=== PATIENT | male | born 1980 | race Caucasian/White ===

== ENCOUNTER 2018-12-21 16:00 | Emergency (ER) | payer SELFPAY ==
[2018-12-21 16:10] VITALS: RESP 18; TEMP 97.9; O2SAT 100
[2018-12-21] MEDS ORDERED: Multivitamin (MVI) 10 ML, Thiamine 100 MG, Folic Acid 1 MG in Dextrose 5%/0.45% NS 1,00... IV ONE (16:17)
[2018-12-21] MEDS ORDERED: Sodium Chloride 0.9% 1,000 ML IV STA (16:17)
--- NOTE | 2018-12-21 16:40 | ED PDOC ---
HPI: Headache Time Seen by Provider: 12/21/18 16:11 Chief Complaint (Nursing): Headache Chief Complaint (Provider): Headache History Per: Patient History/Exam Limitations: no limitations Onset/Duration Of Symptoms: Days (x2) Current Symptoms Are (Timing): Still Present Additional Complaint(s): 38 y/o male with a PHx of Pancreatitis presents to the ED for evaluation of a headache, onset two days ago. Patient states headache is associated with intermittent nose bleeds lasting at about two minutes. Patient reports pain resolves with pressures. Patient notes of experiencing a headache for the past few months but has been constant for the last two days. Patient reports of taking Advil with minimal relief. Patient denies any bleeding elsewhere. Of note, patient was seen at [facility] in October for similar symptoms and at his last visit he was diagnosed with pancreatitis and admitted but signed out AMA. Patient states he never followed up. Patient admits to drinking alcohol today. PMD: no provider Past Medical History Reviewed: Historical Data, Nursing Documentation, Vital Signs Vital Signs: Last Vital Signs Temp 97.9 F 12/21/18 16:08 Pulse 81 12/21/18 16:08 Resp 18 12/21/18 16:08 BP 109/72 12/21/18 16:08 Pulse Ox 100 12/21/18 16:08 - Medical History PMH: Migraine, Pancreatitis - Surgical History Surgical History: No Surg Hx - Family History Family History: States: No Known Family Hx - Social History Current smoker - smoking cessation education provided: Yes Alcohol: > 2 Drinks/Day - Immunization History Hx Tetanus Toxoid Vaccination: No Hx Influenza Vaccination: Yes Hx Pneumococcal Vaccination: No - Home Medications Home Medications: Ambulatory Orders Medication Instructions Recorded No Known Home Med 11/08/18 - Allergies Allergies/Adverse Reactions: Allergies Allergy/AdvReac Type Severity Reaction Status Date / Time No Known Allergies Allergy Verified 11/08/18 21:19 Review of Systems ROS Statement: Except As Marked, All Systems Reviewed And Found Negative (as per HPI) ENT: Positive for: Other (nose bleed) Neurological: Positive for: Headache Physical Exam - Reviewed Nursing Documentation Reviewed: Yes Vital Signs Reviewed: Yes - Physical Exam Appears: Positive for: No Acute Distress Head Exam: Positive for: ATRAUMATIC, NORMOCEPHALIC Skin: Positive for: Warm, Dry Eye Exam: Positive for: EOMI, PERRL ENT: Positive for: Other (tachy mucous membrane. Dry blood noted in the bilateral nares with no active bleeding) Neck: Positive for: Painless ROM, Supple Cardiovascular/Chest: Positive for: Regular Rate, Rhythm. Negative for: Murmur Respiratory: Positive for: Normal Breath Sounds. Negative for: Respiratory Distress Gastrointestinal/Abdominal: Positive for: Soft. Negative for: Tenderness, Mass, Guarding, Rebound Back: Positive for: Normal Inspection. Negative for: Muscle Spasm Extremity: Positive for: Normal ROM. Negative for: Deformity Lymphatic: Negative for: Adenopathy Neurologic/Psych: Positive for: Alert, Oriented (x3), Gait (steady). Negative for: Motor/Sensory Deficits - Laboratory Results Result Diagrams: 12/21/18 16:25 12/21/18 16:25 - ECG O2 Sat by Pulse Oximetry: 100 (RA) Pulse Ox Interpretation: Normal Medical Decision Making Medical Decision Making: Time: 1614 Impression: Headache Differentials include but not limited to dehydration, sinusitis, alcohol abuse, subacute intracranial hemorrhage, pancreatitis Plan: -- Type and Screen -- CT Abd/Pelvis IV Contrast only -- CT Head w/o Contrast -- Alcohol Serum -- CMP -- Lact Acid, Plasma -- LDH -- Lipase -- Magnesium -- Phosphorus -- CBC with Differentials -- PTT -- Prthrombin Time -- Dextrose 1000 ml Multivitamin 10 ml Vitamin B 100 mg Folic Acid 1 mg IV 125 mls/hr -- Sodium Chloride IV 1000 mls/hr -- IV Insertion Time: 1850 CT BRAIN FINDINGS: BRAIN No acute intraparenchymal hemorrhage. No mass lesion. No CT evidence for acute territorial infarct. No midline shift or extra-axial collections. VENTRICLES: No hydrocephalus. ORBITS: The orbits are unremarkable. SINUSES AND MASTOIDS: The paranasal sinuses and mastoid air cells are clear. BONES: No fracture. SOFT TISSUES: Unremarkable. IMPRESSION: No acute intracranial abnormality. Electronically signed on Dec 21, 2018 6:50:31 PM EST by: Jason Zaman M.D., Certified by [employer], Diagnostic Radiology Time: 1914 CT ABD/PELVIS FINDINGS: LUNG BASES: The lung bases appear clear. No pleural effusions are seen. LIVER: There is fatty infiltration of the liver. GALLBLADDER AND BILE DUCTS: Small amount of fluid about the gallbladder suggested. PANCREAS: Heterogeneous appearance to the head of the pancreas and uncinate process likely related to localized pancreatitis. SPLEEN: Unremarkable. ADRENAL GLANDS: Unremarkable. KIDNEYS, URETERS, AND BLADDER: The kidneys appear within normal limits. There is no hydronephrosis or hydroureter. No urinary calculi are seen. Prostatic calcifications present. STOMACH AND BOWEL: Unremarkable appearance of the stomach and bowel. No evidence of bowel obstruction. No evidence suggesting enteritis or colitis. APPENDIX: No evidence of acute appendicitis on CT examination. PERITONEUM: No free fluid. No free air. LYMPH NODES: No lymphadenopathy is evident. REPRODUCTIVE: Unremarkable as visualized. VASCULATURE: No evidence of abdominal aortic aneurysm. BONES: No aggressive appearing osseous lesion. No acute osseous pathology evident. IMPRESSION: Fatty infiltration of the liver. Small amount of fluid about the gallbladder. Heterogeneous appearance to the head and uncinate process of the pancreas suggesting localized pancreatitis. Prostatic calcifications noted. Clinical correlation advised. Electronically signed on Dec 21, 2018 7:15:01 PM EST by: Jason Zaman M.D., Certified by [employer], Diagnostic Radiology On reeval pt continues to appear comfortable. Requesting to eat. Advised patient that he needs to stop drinking especially with pancreatitis. Advised liquid diet and followup at [facility] next week for reevaluation. Addiction resources given. Scribe Attestation: Documented by Cee Rod, acting as a scribe for Briseyda Terrell MD. Provider Scribe Attestation: All medical record entries made by the Scribe were at my direction and personally dictated by me. I have reviewed the chart and agree that the record accurately reflects my personal performance of the history, physical exam, medical decision making, and the department course for this patient. I have also personally directed, reviewed, and agree with the discharge instructions and disposition. Disposition - Clinical Impression Clinical Impression: Pancreatitis, Alcohol abuse, Nosebleed Counseled Patient/Family Regarding: Studies Performed, Diagnosis, Need For Followup - Disposition Referrals: Alcoholics Anonymous [Outside] [facility] [Outside] Disposition: Routine/Home Disposition Time: 19:29 Condition: IMPROVED Additional Instructions: YOU NEED TO STOP DRINKING. YOU HAVE PANCREATITIS AND THIS WILL WORSEN IF YOU CONTINUE TO DRINK AND YOU CAN . PLEASE MAINTAIN LIQUID DIET (NO ALCOHOL) FOR THE NEXT 48 HOURS AND ADVANCE TO BLAND DIET SLOWLY. FOLLOWUP WITH CLINIC NEXT WEEK. Instructions: Pancreatitis (DC), Nosebleeds (DC), Alcohol Abuse and Alcoholism (DC)
[2018-12-21 16:51] LABS: BASO % 1.2 % (0.0-2.0); EOS # 0.1 K/uL (0.0-0.7); EOS % 1.4 % (0.0-4.0); HEMOGLOBIN 12.1 g/dL (12.0-18.0); LYMPH # 2.1 K/uL (1.0-4.3); LYMPH % 53.5 % (20.0-40.0); MEAN CELL VOLUME 101.8 fl (80.0-94.0); MEAN CORPUSCULAR HEMOGLOBIN 34.1 pg (27.0-31.0); MEAN CORPUSCULAR HGB CONC 33.4 g/dL (33.0-37.0); MEAN PLATELET VOLUME 10.1 fl (7.2-11.7); MONO # 0.3 K/uL (0.0-0.8); MONO % 7.1 % (0.0-10.0); NEUT # 1.5 K/uL (1.8-7.0); NEUT % 36.8 % (50.0-75.0); NRBC % 0.2 % (0.0-0.0); RBC 3.54 Mil/uL (4.40-5.90); RED CELL DISTRIBUTION WIDTH 13.7 % (11.5-14.5)
[2018-12-21 16:55] LABS: ALB/GLOB RATIO 0.7 (1.0-2.1); ALBUMIN 3.2 g/dL (3.5-5.0); ALT/SGPT 73 U/L (21-72); AST/SGOT 214 U/L (17-59); BLOOD UREA NITROGEN 12 mg/dl (9-20); CALCIUM 7.9 mg/dL (8.4-10.2); GFR NON-AFRICAN AMERICAN > 60
[2018-12-21] MEDS ORDERED: Potassium Chloride 20 mEq ER Tab PO STA (16:57)
[2018-12-21 17:04] LABS: LIPASE 622 U/L (23-300)
[2018-12-21] MEDS ORDERED: Potassium Chloride 20 mEq ER Tab PO ONE (17:09)
[2018-12-21] MEDS ORDERED: Iohexol 300 100 ML IJ ONE (17:45)
[2018-12-21] MEDS ORDERED: Sodium Chloride 0.9% 50 ML IV ONE (17:45)
[2018-12-21 19:50] VITALS: BP 119/84; PULSE 84
[2018-12-21 19:53] LABS: INR 1.3; PROTHROMBIN TIME 14.3 Seconds (9.8-13.1)
--- NOTE | 2018-12-22 09:19 | CT ---
Date of service: 12/21/2018 PROCEDURE: CT Abdomen and Pelvis with contrast HISTORY: pancreatitis etoh COMPARISON: None. TECHNIQUE: Contrast dose: 95 mL Omnipaque 300 Radiation dose: Total exam DLP = 235.76 mGy-cm. This CT exam was performed using one or more of the following dose reduction techniques: Automated exposure control, adjustment of the mA and/or kV according to patient size, and/or use of iterative reconstruction technique. FINDINGS: LOWER THORAX: Right lower lobe calcified granuloma. LIVER: Diffuse hepatic steatosis. No gross lesion or ductal dilatation. GALLBLADDER AND BILE DUCTS: Contracted with wall thickening. PANCREAS: Low-density involving the pancreatic head and uncinate process. Mild ductal prominence. SPLEEN: Unremarkable. ADRENALS: Unremarkable. No mass. KIDNEYS AND URETERS: Unremarkable. No hydronephrosis. No solid mass. VASCULATURE: Unremarkable. No aortic aneurysm. No aortic atherosclerotic calcification or mural plaque present. BOWEL: Mild periampullary duodenal thickening. No obstruction. No gross mural thickening. APPENDIX: Normal appendix. PERITONEUM: Unremarkable. No free fluid. No free air. LYMPH NODES: Unremarkable. No enlarged lymph nodes. BLADDER: Unremarkable. REPRODUCTIVE: Unremarkable. BONES: L5-S1 degenerative changes. No acute fracture. OTHER FINDINGS: None. IMPRESSION: Heterogeneously low attenuation involving the pancreatic head and uncinate process with periampullary duodenal thickening. Findings may be related to acute pancreatitis. Multiphasic CT/MR ("pancreatic protocol") can be obtained to exclude pancreatic mass.
--- NOTE | 2018-12-22 09:22 | CT ---
Date of service: 12/21/2018 PROCEDURE: CT HEAD WITHOUT CONTRAST. HISTORY: headache etoh COMPARISON: None available. TECHNIQUE: Axial computed tomography images were obtained through the head/brain without intravenous contrast. Radiation dose: Total exam DLP = 832.89 mGy-cm. This CT exam was performed using one or more of the following dose reduction techniques: Automated exposure control, adjustment of the mA and/or kV according to patient size, and/or use of iterative reconstruction technique. FINDINGS: HEMORRHAGE: Possible small bifrontal hygromas. No intracranial hemorrhage. BRAIN: No mass effect or edema. Mild atrophy. No chronic microvascular ischemic changes. VENTRICLES: Aris cisterna magna. No hydrocephalus. CALVARIUM: Unremarkable. PARANASAL SINUSES: Unremarkable as visualized. No significant inflammatory changes. MASTOID AIR CELLS: Unremarkable as visualized. No inflammatory changes. OTHER FINDINGS: None. IMPRESSION: No acute intracranial pathology.
--- NOTE | 2018-12-22 09:58 | CARD ---
APPROVED REPORT Date of service: 12/21/2018 EKG Measurement Heart [id number] ME [id number] <Conclusion> Normal sinus rhythm Normal ECG
== END 2018-12-21 19:31 | disposition home or self-care (01) ==
LOC: H.ER 16:00
DX: K85.90 Acute pancreatitis without necrosis or infection, unspecified (principal); F10.10 Alcohol abuse, uncomplicated; R04.0 Epistaxis; K76.0 Fatty (change of) liver, not elsewhere classified; F17.200 Nicotine dependence, unspecified, uncomplicated
CPT/HCPCS: 70450; 74177; 80053; 83605; 83615; 83690; 83735; 84100; 85025; 85610; 85730; 86850; 86900; 93005; 96360; 99285; G0480; J3411; J7030; J7042; Q9967